=== PATIENT | male | born 1940 | race Caucasian/White ===

== ENCOUNTER 2020-05-09 17:41 | Inpatient (IN) | payer OTHER ==
[~2020-05-09] VITALS: Ht 175.3 cm; Wt 125.7 kg
--- NOTE | ~2020-05-09 | EMS ---
[facility] [address] [place] [address] EMS Patient Care Report Name: FAMILIA HEBERT Room #: 208-P ADM IN M.R.#: [id number] Admission: 05/09/20 Attend Phys: Trent Padron MD Discharge: Date of : 44 Report #: [id number] THIS REPORT FOR: //name// Report Transmitted: 05/09/2020 20:37 EMS Care Summary [facility] Incident [id number] @ 05/09/2020 17:37 Incident Location [address] [place] [address] Patient FAMILIA HEBERT Male, 79 Years 1940 Patient Address [address] [place] [id number] Patient History Congestive Heart Failure (CHF),Chronic Obstructive Pulmonary Disease (COPD),Diabetes,Pacemaker/AICD,Kidney/Renal Failure, Patient Allergies No known allergies, Patient Medications Imodium, Albuterol, Dexamethasone, Gabapentin, Simvastatin, Magnesium Oxide, Metronidazole, Sucralfate, Levothyroxine, Xarelto, Tamsulosin, Mucinex, Cyanocobalamin Co57, Trulicity, Insulin, DuoNeb, Folic acid, Amiodarone, Midodrine, Ascorbic Acid, Ferrous Sulfate, Furosemide, Fluticasone, Senokot, Chief Complaint Hyperkalemia Disposition Transported No Lights/[place] Dispatch Reason Transfer/Interfacility/Palliative Care Transported To [facility] Narrative I- Unit 15 dispatched to the [facility] ER for an interfacility transfer to [facility] [address] [place] [address] EMS Patient Care Report Name: FAMILIA HEBERT Room #: 208-P ADM IN ..#: [id number] Admission: 05/09/20 Attend Phys: Trent Padron MD Discharge: Date of : 42 Report #: [id number] [facility] in [place], [place]. Unit 16 arrived on scene and EMS waited an extended period of time to receive report due to the patient's nurse being busy taking care of other patients. EMS received report from the patient's nurse, Tena ARMAS. Tena stated that the patient is being transferred to [place] due to [facility] not having dialysis available for the patient. EMS entered the room and made contact with the patient, Familia Hebert, who was found lying in bed alert and oriented. C- Hyperkalemia H- Tena ARMAS stated that Familia came to the ER today with a complaint of syncope. The patient reports having a syncopal episode at home and when EMS arrived they witnessed his second syncopal episode which lasted 30 seconds. Tena ARMAS stated that lab work revealed that his potassium was elevated at 6.3. Dr. Cunningham attempted to admit the patient at [facility] however the hospitalist refused to accept him due to the patient possibly needing dialysis in the near future. A- Upon assessment Familia was found lying in bed alert and oriented. Familia denied any complaints to EMS and he stated that he was not in any pain. EMS obtained his vital signs and they were found to be within normal limits. Further assessment findings are documented elsewhere in the report. R- 3-Lead ECG; IV Monitoring (x2); Vital Signs Monitored Mendy- Familia is being transferred to [facility] for specialized care not offered at [facility]. EMS moved Familia from the ER bed onto the stretcher using a sheet pull. He was placed into a position of comfort and he was loaded into the ambulance without incident. Transport then began to [facility] non-emergency ALS. During transport Familia had no new complaints and his condition remained stable. Unit 15 arrived at [place] and Familia was moved into the hospital using the stretcher and he was taken to the room designated by nursing staff. He was moved to the hospital bed from the stretcher and patient care report was given to the receiving nurse. Patient care was released to [facility] and Unit 15 went into service. Pricila Walker EMT-P PA [id number] Initial Vitals @18:39P: 70,R: 16,BP: 138/68,Pain: 0/10,GCS: 15,SpO2: 98,Revised Trauma: 12,[place] Suspected: false @19:09P: 68,R: 15,BP: 128/68,Pain: 0/10,GCS: 15,SpO2: 98,Revised Trauma: 12,[place] Suspected: false @18:10P: 85,R: 16,BP: 109/67,Pain: 0/10,GCS: 15,SpO2: 97,Revised Trauma: 12,N[place] [facility] [address] [place] [address] EMS Patient Care Report Name: FAMILIA HEBERT Room #: 208-P ADM IN M.R.#: [id number] Admission: 05/09/20 Attend Phys: Trent Padron MD Discharge: Date of : 44 Report #: [id number] Suspected: false @18:24P: 78,R: 16,BP: 126/50,Pain: 0/10,GCS: 15,SpO2: 98,Revised Trauma: 12,[place] Suspected: false @18:56P: 71,R: 13,BP: 117/74,Pain: 0/10,GCS: 15,SpO2: 96,Revised Trauma: 12,[place] Suspected: false Assessments @18:05MENTAL:Time Oriented,Person Oriented,Place Oriented,Event Oriented,SKIN:HEENT:Eyes: Right Pupil: 4-mm,Eyes: Left Pupil: 4-mm,LUNG SOUNDS:ABDOMEN:PELVIS//GI:EXTREMITIES:Capillary Refill: Right Upper: < 2 Sec,PULSE:Radial: 2+ Normal,NEURO:@19:10MENTAL:No Abnormalities,SKIN:No Abnormalities,HEENT:Head/Face: No Abnormalities,Eyes: No Abnormalities,Neck/Airway: No Abnormalities,LUNG SOUNDS:General: No Abnormalities,Left Upper: No Abnormalities,Right Upper: No Abnormalities,Left Lower: No Abnormalities,Right Lower: No Abnormalities,ABDOMEN:General: No Abnormalities,Left Upper: No Abnormalities,Right Upper: No Abnormalities,Left Lower: No Abnormalities,Right Lower: No Abnormalities,PELVIS//GI:No Abnormalities,EXTREMITIES:Capillary Refill: Right Upper: < 2 Sec,Left Arm: No Abnormalities,Right Arm: No Abnormalities,Left Leg: No Abnormalities,Right Leg: No Abnormalities,PULSE:Radial: 2+ Normal,NEURO:No Abnormalities, Impression Hyperkalemia Procedures @PTASaline Lock 0cc (20 ga) Site: Hand-RightResponse: UnchangedSucceeded@18:05ALS AssessmentResponse: UnchangedSucceeded@PTASaline Lock 0cc (18 ga) Site: Forearm-RightResponse: UnchangedSucceeded@PTAOxygen FlowRate: 4 Device: Nasal Cannula (NC) Response: UnchangedSucceeded@18:103-Lead ECGResponse: UnchangedSucceeded@18:07StretcherResponse: Unchanged Timeline SECURITY SYSTEMS INTEGRATOR,Saline Lock 0cc 20 ga Site: Hand-Right,Response: UnchangedSucceeded, SECURITY SYSTEMS INTEGRATOR,Saline Lock 0cc 18 ga Site: Forearm-Right,Response: UnchangedSucceeded, SECURITY SYSTEMS INTEGRATOR,Oxygen FlowRate: 4 Device: Nasal Cannula (NC) Response: UnchangedSucceeded, 17:34,Call Received 17:37,Dispatched 17:45,En Route 17:45,On Scene 18:05,At Patient 18:05,ALS Assessment,Response: UnchangedSucceeded, 18:07,Stretcher,Response: Unchanged 18:10,3-Lead ECG,Response: UnchangedSucceeded, 18:10,BP: 109/67 M,PULSE: 85,RR: 16 R,SPO2: 97 Ox,ETCO2: ,BG: ,PAIN: 0,GCS: 15, 18:18,Depart Scene 18:24,BP: 126/50 M,PULSE: 78,RR: 16 R,SPO2: 98 Ox,ETCO2: ,BG: ,PAIN: 0,GCS: 15, [address] [address] EMS Patient Care Report Name: FAMILIA HEBERT Bharathi Room #: 208-P [facility] IN M.R.#: [id number] Admission: 05/09/20 Attend Phys: Trent Padron MD Discharge: Date of : 44 Report #: [id number] 18:39,BP: 138/68 M,PULSE: 70,RR: 16 R,SPO2: 98 Ox,ETCO2: ,BG: ,PAIN: 0,GCS: 15, 18:56,BP: 117/74 M,PULSE: 71,RR: 13 R,SPO2: 96 Ox,ETCO2: ,BG: ,PAIN: 0,GCS: 15, 19:09,BP: 128/68 M,PULSE: 68,RR: 15 R,SPO2: 98 Ox,ETCO2: ,BG: ,PAIN: 0,GCS: 15, 19:16,At Destination 19:29,Transfer Patient 19:43,Call Closed 21:07,In District Disclaimer v1.1 Copyright 2020 [employer] This EMS Care Summary contains data elements from the applicable legal record (which may be displayed differently). It is designed to provide pertinent information for the following purposes: continuity of care, clinical quality, and state data reporting. The complete legal record is available to ED staff and administrators of the receiving hospital in [employer] Patient Tracker. All data is provided "as is."
[~2020-05-09 17:41] MED LIST: ADULT LOW DOSE81 MG PO; ALLOPURINOL 10100 M1 PO; AUGMENTIN 875875 MG PO; CARAFATE 1 GM TA1 GM PO; CENTRUM SILVER1 EAC2 PO; CLEOCIN HCL150 MG PO; CLOPIDOGREL PO; COLACE100 MG PO; COREG PO; COUMADIN 3 MG TA3 M1 PO; DUONEB 2.5-0.5 M3 ML INH; FERREX 150150 MG PO; FLOMAX PO; FLOMAX0.4 MG PO; FLUDROCORTISON0.1 MG PO; FOLIC ACID1 MG PO; LANTUS SUBQ; LASIX 40 MG TAB40 M1 PO; LIDODERM 5%1 PATC1 TRANSDERM; LISINOPRIL10 MG PO; METHOTREXATE 22.5 MG PO; MIDODRINE HCL10 MG PO; MUPIROCIN22 GM; NORCO 10-325 T1 EACH PO; NOVOLOG100 UNIT/1; NYSTATIN15 GM; PACERONE 200 M200 M1 PO; POTASSIUM20 PO; PREDNISONE 10 M10 M1 PO; PROAIR HFA8.5 GM INH; PYRIDOSTIGMINE60 M1 PO; SIMVASTATIN40 MG PO; TRIAMCINOLONE; ULTRAM 50MG TAB50 MG PO; ZANTAC 150MG T150 MG PO; ZOCOR 20 MG TAB20 M1 PO
[2020-05-09 19:45] VITALS: BP 114/56
[2020-05-09 21:11] LABS: HEMATOCRIT 35.5 % (42.0-52.0); HEMOGLOBIN 11.6 gm/dL (14.0-18.0); MCH 31.9 pg (26.0-34.0); MCHC 32.6 g/dL (28.0-37.0); MCV 97.7 fL (80.0-100.0); RBC 3.63 mil/uL (4.50-6.00); RDW 13.4 % (10.5-14.5); WBC 11.3 thou/uL (4.0-11.0)
[2020-05-09 21:51] LABS: ANION GAP 7 mmol/L (7-16); BUN 59 mg/dL (7-18); CALCIUM 8.1 mg/dL (8.5-10.1); CHLORIDE 104 mmol/L (98-107); CO2 28 mmol/L (21-32); CREATININE 2.6 mg/dL (0.7-1.3); GLUCOSE 113 mg/dL (74-106); HDL CHOLESTEROL 94 mg/dL (>40); MAGNESIUM 2.6 mg/dL (1.8-2.4); POTASSIUM 5.5 mmol/L (3.5-5.1); SODIUM 139 mmol/L (136-145); TRIGLYCERIDE 49 mg/dL (<150); TROPONIN-I <0.06 ng/mL (<0.06); VLDL 10 mg/dL (<40)
[2020-05-09 22:02] LABS: SERUM ASSESSMENT Clear
[2020-05-09 22:41] LABS: CHOLESTEROL 196 mg/dL (<200); LDL CHOLESTEROL 93 mg/dL (<100); TC:HDL 2.1 Ratio (Not establshd)
[2020-05-09 23:26] VITALS: BP 140/51
--- NOTE | 2020-05-10 03:36 | NUR ---
RECEIVED REPORT FROM [facility] DAY SHIFT RN.PATIENT IS A DIRECT ADMIT FROM [place].A/O X 4.PATIENT HAS CHRONIC LOWER BACK PAIN.DENIES SOB.ON 3 L NC NC.MONITOR SHOWS SR.
[2020-05-10 04:15] VITALS: BP 126/47
[2020-05-10 05:04] LABS: CALCIUM 8.1 mg/dL (8.5-10.1); CREATININE 2.3 mg/dL (0.7-1.3); MAGNESIUM 2.6 mg/dL (1.8-2.4); POTASSIUM 5.5 mmol/L (3.5-5.1)
[2020-05-10 05:24] LABS: HEMATOCRIT 33.9 % (42.0-52.0); HEMOGLOBIN 11.3 gm/dL (14.0-18.0); MCH 32.5 pg (26.0-34.0); MCHC 33.4 g/dL (28.0-37.0); MCV 97.1 fL (80.0-100.0); RBC 3.49 mil/uL (4.50-6.00); RDW 13.2 % (10.5-14.5); WBC 9.1 thou/uL (4.0-11.0)
--- NOTE | 2020-05-10 09:11 | EKG ---
[facility] [place] [address] ELECTROCARDIOGRAM REPORT Name: ARTURO CONRAD Room #: 208-P ADM IN M.R.#: [id number] Admission: 05/09/20 Attend Phys: Trent Padron MD Discharge: Date of : 42 Report #: [id number] THIS REPORT FOR: cc: Filiberto Mccoy MD,Filiberto Preston,Homero Vallejo MD [facility] ~ THIS REPORT FOR: //name// [facility] Test Date: 2020-05-10 Test Time: 07:58:48 Pat Name: ARTURO CONRAD Department: Room: 208 P Gender: M Wire Frame Dipper: CR : 1940 Requested By: Zena Spann Order Number: [id number] MD: Homero Preston Measurements Intervals [place] Rate: 66 P: -17 DE: 129 QRS: -24 QRSD: 127 T: 79 QT: 427 QTc: 448 Interpretive Statements Sinus rhythm Cannot rule out septal infarct, old Compared to ECG 11/22/2014 01:27:49 No significant change was found Electronically Signed On 05-10-2020 9:11:04 CDT by Homero Preston [email or web address] <ELECTRONICALLY SIGNED> By: Homero Preston MD, [facility] 05/10/20 0911 [phone] Homero Preston MD, [facility] /EPI
[2020-05-10 09:41] VITALS: BP 115/73
[2020-05-10 12:21] VITALS: BP 121/56
--- NOTE | 2020-05-10 13:06 | 2DMMODE ---
[facility] Thelma Huddleston [email or web address] [address] 2 D/M-MODE ECHOCARDIOGRAM Name: ARTURO CONRAD Room #: 208-P ADM IN M.R.#: [id number] Admission: 05/09/20 Attend Phys: Trent Padron MD Discharge: Date of : 42 Report #: [id number] THIS REPORT FOR: cc: Filiberto Mccoy MD,Filiberto Preston,Homero Vallejo MD [facility] ~ APPROVED REPORT Study performed: 05/10/2020 11:08:54 EXAM: Comprehensive 2D, Doppler, and color-flow Echocardiogram Patient Location: Bedside Room #: 208 Status: routine BSA: 2.38 HR: 80 bpm BP: 115/73 mmHg Rhythm: Pacemaker Other Information Study Quality: Adequate Indications COPD Diabetes Dyspnea Pacemaker CAD 2D Dimensions IVSd: 11.42 (7-11mm) LVOT Diam: 22.23 (18-24mm) LVDd: 54.04 mm PWd: 11.04 (7-11mm) Ascending Ao: 34.91 (22-36mm) LVDs: 39.83 (25-40mm) Aortic Root: 31.11 mm IVC: 19.00 mm Volumes Left Atrial Volume (Systole) Single Plane 4CH: 54.67 mL Single Plane 2CH: 50.45 mL LA ESV Index: 24.00 mL/m2 Aortic Valve AoV Peak Edgard.: 1.26 m/s AO Peak Gr.: 6.32 mmHg LVOT Max P.31 mmHg [facility] [address] [place] [address] 2 D/M-MODE ECHOCARDIOGRAM Name: ARTURO CONRAD Bharathi Room #: 208-P [facility] IN .R.#: [id number] Admission: 05/09/20 Attend Phys: Trent Padron, Discharge: Date of : 44 Report #: [id number] LVOT Max V: 0.91 m/s RETA Vmax: 2.81 cm2 Mitral Valve E/A Ratio: 0.7 MV Decel. Time: 224.71 ms MV E Max Edgard.: 0.56 m/s MV A Edgard.: 0.78 m/s MV PHT: 65.17 ms IVRT: 161.48 ms Pulmonary Valve PV Peak Edgard.: 1.05 m/s PV Peak Gr.: 4.42 mmHg Pulmonary Vein P Vein S: 0.33 m/s P Vein A: 0.21 m/s P Vein D: 0.22 m/s P Vein A Dur.: 87.7 msec P Vein S/D Ratio: 1.50 Tricuspid Valve TR Peak Edgard.: 2.52 m/s TR Peak Gr.: 25.33 mmHg PA Pressure: 30.00 mmHg Left Ventricle The left ventricle is normal size. There is normal LV segmental wall motion. There is normal left ventricular wall thickness. The left ventricular systolic function is normal. The left ventricular ejection fraction is within the normal range. LVEF is 50-55%. Mild diastolic dysfunction is present (impaired relaxation pattern). Right Ventricle The right ventricle is normal size. The right ventricular systolic function is normal. Pacemaker lead is present in the right ventricle. Atria The left atrium size is normal. The right atrium size is normal. Pacemaker lead is present in the right atrium. Aortic Valve The aortic valve is trileaflet, mildly sclerotic. No aortic regurgitation is present. There is no aortic valvular stenosis. Mitral Valve [facility] [place] [place] [address] 2 D/M-MODE ECHOCARDIOGRAM Name: ARTURO CONRAD Room #: 208-P [facility] IN M.R.#: [id number] Admission: 05/09/20 Attend Phys: Trent Padron, Discharge: Date of : 42 Report #: [id number] The mitral valve is normal in structure. Trace to mild mitral regurgitation. No evidence of mitral valve stenosis. Tricuspid Valve The tricuspid valve is normal in structure. There is trace tricuspid regurgitation. Estimated PAP 30 mmHg. There is no pulmonary hypertension. Pulmonic Valve The pulmonary valve is normal in structure. There is no pulmonic valvular regurgitation. Great Vessels The aortic root is normal in size. IVC is normal in size and collapses >50% with inspiration. Pericardium There is no pericardial effusion. <Conclusion> The left ventricular systolic function is normal. There is normal LV segmental wall motion. LVEF is 50-55%. Mild diastolic dysfunction The aortic valve is trileaflet, mildly sclerotic. No aortic regurgitation or stenosis The mitral valve is normal in structure. Trace to mild mitral regurgitation. There is trace tricuspid regurgitation. Estimated pulmonary artery pressure of 30 mmHg. There is no pericardial effusion. <ELECTRONICALLY SIGNED> By: Homero Preston MD, FACC 05/10/20 1306 1306 1306 Homero Preston MD, FACC /INF
[2020-05-10] MEDS ORDERED: TRULICITY0.75 MG/0. (14:21)
[2020-05-10] MEDS ORDERED: PERCOCET 7.5-31 EAC1 (14:26)
[2020-05-10] MEDS ORDERED: ALL DAY ALLERGY10 M3 (14:29)
[2020-05-10] MEDS ORDERED: LIPITOR 20 MG T20 M1 (14:29)
[2020-05-10] MEDS ORDERED: [UNRECOGNIZED DRUG - OTHER] (14:30)
[2020-05-10] MEDS ORDERED: NEURONTIN 400400 M1 (14:32)
[2020-05-10] MEDS ORDERED: LASIX 40 MG TAB40 MG (14:35)
--- NOTE | 2020-05-10 17:56 | NUR ---
ASSUMED CARE OF PT AT SHIFT CHANGE. ASSSESSMENTS CHARTED. MEDS GIVEN PER MAR. PT A&OX4, C/O BACK PAIN TREATED WITH TYLENOL WITH LITTLE RELIEF. PT ON 2L NC, NO C/O SOA. PT UP WITH X1 ASST. PLAN TO CONTINUE IVF, WATCH BMP AND FOLLOW CARDIOLOGY. WILL CONTINUE TO MONITOR.
[2020-05-10 20:03] LABS: URINE BILIRUBIN NEGATIVE (Negative); URINE BLOOD NEGATIVE (Negative); URINE CLARITY CLEAR; URINE COLOR YELLOW; URINE GLUCOSE-RANDOM* NEGATIVE (Negative); URINE KETONES NEGATIVE (Negative); URINE LEUKOCYTES NEGATIVE (Negative); URINE NITRITE NEGATIVE (Negative); URINE PROTEIN (DIPSTICK) NEGATIVE (Negative); URINE SPECIFIC GRAVITY 1.025 (1.005-1.035); URINE UROBILINOGEN 0.2 E.U./dl (0.2-1.0)
[2020-05-10 21:51] VITALS: BP 100/32
[2020-05-10 21:52] VITALS: BP 100/32
--- NOTE | 2020-05-10 21:57 | NUR ---
PATIENT FOUND TO BE HYPOTENSIVE UPON INITIAL ASSESSMENT/VITALS. ORDERS OBTAINED FOR ONETIME BOLUS OF NS 500CC AND PO MIDODRINE. PATIENT HAS REMAINED ASSYMPTOMATIC DURING EVENT. PATIENT LAID IN LOW FOWLERS BREATHING IS A CONCERN. NURSE TO CONTINUE ASSESSING BLOOD PRESSURE.
[2020-05-10 22:54] VITALS: BP 103/38
[2020-05-11] VITALS (9 sets, daily range): BP systolic 111–143; BP diastolic 34–78
[2020-05-11 00:06] LABS: GLYCOHEMOGLOBIN (HGB A1C) 9.4 % (4.8-5.6)
[2020-05-11 04:47] LABS: ALBUMIN 2.9 g/dL (3.4-5.0); CREATININE 2.6 mg/dL (0.7-1.3); PHOSPHORUS 5.5 mg/dL (2.5-4.9); POTASSIUM 5.1 mmol/L (3.5-5.1)
--- NOTE | 2020-05-11 08:02 | NUR ---
PATIENT IS PROGRESSING SLOWLY IN HIS CARE PLAN. VITAL SIGNS STABLE WITH PATIENT HAVING NO COMPLAINTS OF PAIN OR NAUSEA. MOSTLY DISORIENTED THROUGHOUT SHIFT, PATIENT IS UNABLE TO CALL FOR NEEDS OR PARTICIPATE IN CARE. FREQUENT INCONTINENCE, PATIENT PROVIDED SKIN CARE AND REPOSITIONING OFTEN. POSSIBLE DISCHARGE TO REHAB SOON. CONTINUE PLAN OF CARE.
--- NOTE | 2020-05-11 08:13 | NUR ---
ASSUMED PATIENT CARE AT 1845. HYPOTENSION NOTED EARLY IN SHIFT WITH PATIENT GIVEN MULTIPLE TREATMENTS VIA FLUID BOLUS, AND MEDICATIONS. FULLY ORIENTED, PATIENT IS ABLE TO CALL APPROPRIATELY FOR NEEDS AND PARTICIPATE IN CARE. BREATHING STABLE ON HOME DOSAGE OF OXYGEN EVIDENCED BY ASSESSMENTS AND SPOT OXYGENATION CHECKS. CONTINUE PLAN OF CARE.
--- NOTE | 2020-05-11 08:35 | NUR ---
REC REPORT OF LOW B/PS HANDLED OVER NIGHT, 140/40S THIS A.M. PT IS A&0X4, AMB W/MAX ASSIST AND WALKER AND CANE. WATCHING K+, LAST ONE DRAWN WAS YESTERDAY. PT'S IV TANGLED AND CLOTTED, WILL ADDRESS. HE STATES LAB INADVERTENTLY PULLED ON IT WHILE WORKING ON HIM. FOOD SET UP D/T LUE WEAK (PT STATES HAD SHOULDER REVERSAL). WEARS 02 AT HOME WELL HERE. SEE SEPARATE INTERVENTIONS FOR INDIVIDUAL ASSESSMENTS. WILL CONTINUE TO MONITOR, ENCOURAGED PT TO USE CALL LIGHT FOR ANY NEEDS AND HE DOES
--- NOTE | 2020-05-11 17:15 | NUR ---
ORTHOSTATICS: LYING 117/43 PULSE 73 SITTING 117/34 PULSE 76 STANDING ABOUT 30 SEC LATER 131/34 PULSE: 77
[2020-05-12] VITALS (7 sets, daily range): BP systolic 119–152; BP diastolic 41–59
--- NOTE | 2020-05-12 02:37 | NUR ---
ASSUMED CARE OF PATIENT AT 1900. PATIENT HIGH FALL RISK. PATIENT DID NOT APPEAR IMPULSIVE THROUGH NOC AND USED CALL LIGHT APPROPRIATELY. PATIENT RESTED WELL AND APPEARS TO BE SLOWLY PROGRESSING TOWARDS HIS GOALS.
[2020-05-12 03:56] LABS: CALCIUM 8.1 mg/dL (8.5-10.1); CREATININE 2.1 mg/dL (0.7-1.3); POTASSIUM 4.4 mmol/L (3.5-5.1)
--- NOTE | 2020-05-12 11:02 | NUR ---
PT WILL NEED SNF AT DISCHARGE TOOK SNF LIST TO PT'S NURSE (PAYAL) TO GIVE TO PT TO REVIEW. DP TO FOLLOW.
--- NOTE | 2020-05-12 17:08 | NUR ---
PT CARE ASSUMED APPROX 0700. ASSESSMENTS CHARTED. PT DENIES PAIN AND SOA. VSS. TURNING Q2HRS AND PRN. CLINICAL UPDATE GIVEN TO PT'S DAUGHTER IN LAW AFTER [place] PROVIDED. AFTER SHE DENIES QUESTIONS OR CONCERNS REGARDING POC. INFORMED THAT PT RECEIVED FACILITY LIST TO PICK NEXT LEVEL OF CARE AND SHE COULD CALL AND ASSIST WITH IT. PT TOLERATING POC WITHOUT DISTRESS NOTED.
[2020-05-13] VITALS (7 sets, daily range): BP systolic 101–174; BP diastolic 42–74
--- NOTE | 2020-05-13 03:10 | NUR ---
ASSUMED CARE OF PATIENT AT 1900. AT INITIAL ASSESSMENT PATIENT C/O PAIN IN BUTTOCKS. OFFERED TO REPOSITION PATIENT ON SIDE BUT PATIENT REFUSED. ADMINISTERED PRN PAIN MEDICATION ORDERED. PATIENT HAD NO FURTHER C/O NAUSEA THAT WAS REPORTED BY DAY SHIFT NURSE. PATIENT APPEARS TO BE SLOWLY PROGRESSING TOWARDS GOALS.
[2020-05-13 04:35] LABS: ALBUMIN 2.8 g/dL (3.4-5.0); CALCIUM 8.9 mg/dL (8.5-10.1); PHOSPHORUS 3.2 mg/dL (2.5-4.9); POTASSIUM 4.1 mmol/L (3.5-5.1)
--- NOTE | 2020-05-13 17:48 | NUR ---
RECEIVED PT'S CARE AROUND 0710; PT. ON BED; ALERT; DURING AM ASSESSMENT AOX4; C/O PAIN OVER BUTTOCKS; REFUSED PRN PAIN MEDICATION; AM MEDICATIONS GIVEN; EDUCATED ABOUT THE IMPORTANCE OF TURNING FROM SIDE TO SIDE; ST. UNDERSTANDING; C/O CONSTIPATION DURING THE AM; PRN MEDICATION GIVEN; ABLE TO HAVE A LARGE SOFT BM; POSITIVE ORTHOSTATIC HYPERTENTION DURING THE PM; PHYSICIAN NOTIFIED; NO NEW ORDERS; MONITORING; SCHEDULED MEDICATION GIVEN; ASSESSMENT CHARGED; FOLLOWING POC; WILL PASS ON REPORT;
[2020-05-14] VITALS (8 sets, daily range): BP systolic 121–195; BP diastolic 43–64
--- NOTE | 2020-05-14 03:58 | NUR ---
PT ALERT AND ORIENTED. SR ON THE MONITOR. VITALS STABLE. DENIES PAIN. NO EVENTS OVERNIGHT. PT PROGRESSING TOWARDS GOAL.
--- NOTE | 2020-05-14 13:24 | NUR ---
INITIAL ASSESSMENT: SW reviewed chart and spoke with nursing. Pt was admitted from home due to hyperkalemia. Recommendation made for post-acute placement. SW met with pt at bedside. Introduced role of SW. Pt is alert/orientated x 4. Pt reports he lives at home with his dtr-in-law, Ximena. Pt has a cane, walker, w/c at home. Pt is normally on home O2 at 4L. Home O2 provided by [employer]. Pt has been to a SNF in the past ([facility] Pt does not want to return to that facility. Pt requested SW speak with his dtr-in-law. SW spoke with Ximena, via phone. Pt has family who work at [facility], and they would like a referral to be sent there. train planner to fax referral. Anticipate discharge soon. [facility] requires a COVID-19 test prior to admission. SW notified attending physician of need for COVID test. BEE is following to assist as needed with discharge planning.
--- NOTE | 2020-05-14 15:04 | NUR ---
FAXED REFERRAL TO [facility] SPOKE WITH ADM. THEY RECEIVED REFERRAL AND WILL REVIEW. DP TO FOLLOW.
--- NOTE | 2020-05-14 17:38 | NUR ---
RECEIVED PT'S CARE AROUND 0710; PT. ON BED; AOX4; DURING ASSESSMENT C/O PAIN OVER BUTTOCKS; REQUESTED PRN PAIN MEDICATION; GIVEN WITH AM MEDICATIONS; BS ON THE 200s; INSULIN REPLACED; DURING LUNCH BS ON THE 300s; CHECK CHARTING; PHYSICIAN NOTIFIED; ORDERS ON PLACED; DURING LUNCH BS ON THE LATE 100s; MONITORING; PT. NOT ABLE TO HAVE BM ON 05/14/20; EDUCATED ABOUT GOLYTELY PER ORDER DRINKING AT LEAST ONE CUP; ST. UNDERSTANDING; DRUNK ONE CUP; REFUSED SECOND CUP; EDUCATED ABOUT KUB SHOWING SOME CONSTIPATION; ST. UNDERSTANDING; REFUSED YET; EDUCATED ABOUT DRINKING LATER ON THE NIGHT; ST. UNDERSTANDING; DURING THE AFTERNOON DAUGHTER IN LAW REQUESTED TO TALK WITH RADIO JOURNALIST; RADIO JOURNALIST NOTIFIED; DAUGHTER IN LAW EDUCATED AGAIN ABOUT VISITORS POLICIES WHEN SHOWING WITH , PT'S SON, AT THE BED SIDE; ST. UNDERSTANDING; PT'S SON REMAINED IN ROOM; SECURITY PAGED; ASSESSMENT CHARGED; FOLLOWING POC; WILL PASS ON REPORT;
--- NOTE | 2020-05-15 03:33 | NUR ---
SLEPT PART OF SHIFT. WORKING ON GOALS AND PLAN OF CARE FOR NOC. PASSING GAS AFTER 2 CUPS OF GOLYTLY. STATES DOESNT FEEL CONSTIPATED. IS NAUSEATED. ZOFRAN GIVEN. PROGRESSING SLOWLY TOWARDS GOALS FOR SNIF. ASSIST TO TURN EVERY 2-3 HOURS FOR COMFORT AND SKIN CARE. BARRIER CREAM TO COCCYX. CONTINUE TO ASSES CLOSELY.
[2020-05-15 03:39] VITALS: BP 142/34
[2020-05-15 04:16] LABS: ABSOLUTE NEUTROPHILS 4.2 thou/uL (1.4-8.2); BASOPHILS 0.5 % (0.0-2.0); EOSINOPHILS 1.7 % (0.0-3.0); HEMATOCRIT 29.6 % (42.0-52.0); MCH 32.7 pg (26.0-34.0); MCHC 33.6 g/dL (28.0-37.0); MCV 97.5 fL (80.0-100.0); MONOCYTES 9.2 % (1.0-8.0); PLATELET COUNT 196 thou/uL (150-400); POLYS 62.6 % (36.0-66.0); RBC 3.04 mil/uL (4.50-6.00); RDW 13.6 % (10.5-14.5); WBC 6.7 thou/uL (4.0-11.0)
[2020-05-15 04:25] LABS: ALBUMIN 2.6 g/dL (3.4-5.0); CREATININE 1.8 mg/dL (0.7-1.3); MAGNESIUM 1.8 mg/dL (1.8-2.4); POTASSIUM 3.9 mmol/L (3.5-5.1); TOTAL BILIRUBIN 0.5 mg/dL (0.2-1.0); TOTAL PROTEIN 6.1 g/dL (6.4-8.2)
[2020-05-15 07:20] VITALS: BP 139/44
--- NOTE | 2020-05-15 09:38 | NUR ---
Assess due to notification of sacral ulcer that has been documented as healing. Admit with syncope and hyperkalemia. Appetite usuall good but has been nauseated past couple days, constipated. No recent signficant wt changes. K now wnl, BG elevated and A1C 9.4, so will add carb control diet. On bowel regimen and BG medications. Low nutrition risk.
[2020-05-15 11:40] VITALS: BP 147/60
[2020-05-15] MEDS ORDERED: MIDODRINE HCL 55 M1 PO (11:50)
[2020-05-15] MEDS ORDERED: VELTASSA8.4 GM PO (11:50)
[2020-05-15] MEDS ORDERED: GLUCAGEN1 MG/1 ML IM (11:50)
[2020-05-15] MEDS ORDERED: HUMALOG100 UNIT/1 SUBQ (11:50)
[2020-05-15] MEDS ORDERED: CALCITRIOL0.25 MCG PO (11:50)
[2020-05-15] MEDS ORDERED: FLORINEF ACETA0.1 MG PO (11:50)
[2020-05-15] MEDS ORDERED: XARELTO15 MG PO (11:50)
--- NOTE | 2020-05-15 12:53 | NUR ---
PT DISCHARGING TODAY TO [facility] FAXED DC ORDERS/SUMMARY TO FACILITY SPOKE WITH MUMTAZ IN ADM SHE RECEIVED ORDERS AND ARRANGED TRANSPORT BY SARA AND 02. NOTIFIED PT'S DIL (DANNY) OF DC AND TIME OF TRANSPORT. UNIT NOTIFIED AND CHART COPY PER US. RN TO CALL REPORT TO .
--- NOTE | 2020-05-15 13:31 | NUR ---
DISCHARGE NOTE: SW reviewed chart and spoke with attending physician's SIDE STITCHING MACHINE OPERATOR. Pt is medically stable to discharge to [facility] today. enterprise resource planner faxed discharge orders/summary/COVID test results and notified family. W/c van transportation scheduled for [phone] per facility's arrangements. No additional SW needs identified at this time, but is available to assist should needs arise.
--- NOTE | 2020-05-15 13:48 | NUR ---
ASSUMED CARE AT CHANGE OF SHIFT. ALERT X4, PAIN TO BUTTOCKS DUE TO PRESSURE AREA, TREATED WITH PRN PAIN MEDS AND BARRIER CREAM. PT LIVES WITH FAMILY. DC'S TO SKILLED FACILITY [facility] VIA WHEELCHAIR VAN. IV AND TELE REMOVED. PT IS A MOD ASSIST X1 WITH WALKER. 2-3 L NASAL CANNULA IS BASELINE. PACEMAKER INTERIGATED THIS ADMISSION. ALL BELONGINGS SENT WITH PATIENT.
== END 2020-05-15 13:35 | DRG 312 ==
LOC: 2N 17:41
PROVIDERS: Internal Medicine; Internal Medicine Nephrology; Nurse Practitioner Family; ADMIT Hospitalist; ATTEND Hospitalist
DX: I95.1 Orthostatic hypotension (principal); N17.0 Acute kidney failure with tubular necrosis; J96.11 Chronic respiratory failure with hypoxia; I13.0 Hypertensive heart and chronic kidney disease with heart failure and stage 1 through stage 4 chronic kidney disease, or unspecified chronic kidney disease; E87.5 Hyperkalemia; I35.0 Nonrheumatic aortic (valve) stenosis; E11.22 Type 2 diabetes mellitus with diabetic chronic kidney disease; N18.3 Chronic kidney disease, stage 3 (moderate); E78.5 Hyperlipidemia, unspecified; M06.9 Rheumatoid arthritis, unspecified; I25.10 Atherosclerotic heart disease of native coronary artery without angina pectoris; M10.9 Gout, unspecified; J44.9 Chronic obstructive pulmonary disease, unspecified; E11.65 Type 2 diabetes mellitus with hyperglycemia; I48.0 Paroxysmal atrial fibrillation; K59.00 Constipation, unspecified; Z20.828 Contact with and (suspected) exposure to other viral communicable diseases; E11.42 Type 2 diabetes mellitus with diabetic polyneuropathy; Z90.49 Acquired absence of other specified parts of digestive tract; Z95.0 Presence of cardiac pacemaker; Z87.891 Personal history of nicotine dependence; Z95.5 Presence of coronary angioplasty implant and graft; Z79.4 Long term (current) use of insulin; Z79.899 Other long term (current) drug therapy; Z86.73 Personal history of transient ischemic attack (TIA), and cerebral infarction without residual deficits; I25.2 Old myocardial infarction
CPT/HCPCS: 10081